=== PATIENT | female | born 1965 | race Caucasian/White ===

== ENCOUNTER 2016-07-10 09:59 | Day surgery (SDC) | payer MEDICAID ==
[~2016-07-10 09:59] MED LIST: Dexamethasone 4 MG/ML SDV ONE; Lactated Ringers 1,000 ML ONE; Lidocaine 1% 6 ML ONE; Lidocaine 1%/Sod Bicarbonate in NS 8.4% 1 ML Syringe PRN; Midazolam 1 MG/ML 2 ML SDV ONE; Ondansetron 4 MG/2 ML SDV ONE; Propofol 200 MG/20 ML SDV ONE; Rocuronium 50 MG/5 ML Vial ONE; Sodium Chloride 0.9% 10 ML Syringe FLUSH PRN; ceFAZolin 1 GM Vial ONE; fentaNYL 250 MCG/5 ML SDV ONE
[2016-07-10] MEDS: Lactated Ringers 1,000 ML IV SCH ×2 (10:25→16:22)
[2016-07-10] MEDS ORDERED: EPINEPHrine 1:1000 1 MG/ML SDV ONE (11:17)
[2016-07-10] MEDS ORDERED: Ropivacaine 0.5% 5 MG/ML 30 ML SDV ONE (11:18)
[2016-07-10] MEDS ORDERED: EPINEPHrine 1:1000 1 MG/ML 30 ML MDV ONE (11:43)
[2016-07-10] MEDS ORDERED: Bupivacaine 0.25% 30 ML SDV ONE (11:43)
[2016-07-10] MEDS ORDERED: Scopolamine 1.5 MG Transdermal Patch TOP ONE (11:44)
--- NOTE | 2016-07-10 11:44 | PCM.PREANE ---
Preanesthetic Assessment - Anesthesia/Transfusion/Family Hx Anesthesia History: Prior Anesthesia Without Reaction Family History of Anesthesia Reaction: No Transfusion History: No Prior Transfusion(s) - Review of Systems General: No Symptoms Pulmonary: No Symptoms Cardiovascular: No Symptoms Gastrointestinal: No symptoms Neurological: No Symptoms - Physical Assessment NPO Status Date: 07/09/16 NPO Status Time: 23:30 Pulse: 74 O2 Sat by Pulse Oximetry: 94 Respiratory Rate: 16 Blood Pressure: 143/69 Temperature: 36.4 C Vital Signs: Last Vital Signs Temp 97.5 C H 07/10/16 10:05 Pulse 74 07/10/16 10:05 Resp 16 07/10/16 10:05 BP 143/69 H 07/10/16 10:05 Pulse Ox 94 L 07/10/16 10:05 Height: 1.65 m Weight: 94.755 kg ASA Class: 2 Mental Status: Alert & Oriented x3 Airway Class: Mallampati = 1 Dentition: Reports: Normal Dentition Thyro-Mental Finger Breadths: 3 Mouth Opening Finger Breadths: 3 ROM/Head Extension: Full Lungs: Clear to auscultation, Normal respiratory effort Cardiovascular: Regular Rate, Regular Rhythm, No Murmurs - Lab Values: Laboratory Last Values POC Glucose 91 mg/dL (70-105) 07/10/16 10:30 - Allergies Allergies/Adverse Reactions: Allergies Allergy/AdvReac Type Severity Reaction Status Date / Time No Known Allergies Allergy Verified 07/10/16 10:44 - Blood Blood Available: No Product(s) Available: None - Anesthesia Plan Pre-Op Medication Ordered: None - Acknowledgements Anesthesia Type Planned: General Anesthesia, Regional Block (interscaline block for post-op pain control) Pt an Appropriate Candidate for the Planned Anesthesia: Yes Alternatives and Risks of Anesthesia Discussed w Pt/Guardian: Yes Pt/Guardian Understands and Agrees with Anesthesia Plan: Yes PreAnesthesia Questionnaire HEENT History: Reports: Allergic Rhinitis Cardiovascular History: Reports: High Cholesterol, Hypertension, Other (See Below) Other Cardiovascular History: chest wall pain Respiratory History: Reports: Bronchitis, Recurrent, SOB Gastrointestinal History: Reports: GERD, Other (See Below) Other Gastrointestinal History: abdominal pain, reflux, gastritis, nausea/ vomiting Genitourinary History: Reports: Renal Calculus, Other (See Below) Other Genitourinary History: dysuria, flank pain 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: Other (See Below) Other OB/BYN History: ovarian cyst Musculoskeletal History: Reports: Back Pain, Chronic, Fibromyalgia, Other (See Below) Other Musculoskeletal History: L arm paresthesia, cervical radiculopathy, L rotator cuff tear, back pain, bilateral carpal tunnel syndrome, degenerative arthritis of cervical spine, foreign body of toe, heel pain, 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, L shoulder pain, lumbar strain , myofascial pain, neck pain, open head wound, sacroilitis, synovial cyst to R knee Neurological History: Reports: Migraines, TIA Other Neuro History: L arm paresthesia, TIA, headaches, dizziness, memory changes Psychiatric History: Reports: Anxiety, Depression, Panic Attack, Other (See Below) Other Psychiatric History: fatigue, insomnia Endocrine/Metabolic History: Reports: Hypothyroidism, Obesity/BMI 30+, Vitamin D Deficiency Hematologic History: Reports: Anemia Other Hematologic History: vit D deficiency Immunologic History: Reports: None Oncologic (Cancer) History: Reports: None Dermatologic History: Reports: Other (See Below) Other Dermatologic History: rash, dermatitis, mucous cyst of toe, neck excision of soft tissue tumor - Past Surgical History Head Surgeries/Procedures: Reports: None GI Surgical History: Reports: Cholecystectomy, Hernia Repair/Other Female Surgical History: Reports: Hysterectomy, Tubal Ligation Musculoskeletal Surgical History: Reports: Carpal Tunnel, Other (See Below) Other Musculoskeletal Surgeries/Procedures:: L great toe surgery - SUBSTANCE USE Smoking Status *Q: Current Every Day Smoker Tobacco Use Within Last Twelve Months: Cigarettes Other Tobacco Use Within Last Twelve Months: 2 cigarettes a day Second Hand Smoke Exposure: Yes Days Per Week of Alcohol Use: 0 Number of Drinks Per Day: 0 Total Drinks Per Week: 0 Recreational Drug Use History: No Recreational Drug Type: Reports: Methamphetamine - HOME MEDS Home Medications: Home Meds Albuterol [Proventil HFA] 1 inhalation INH Q4HR PRN 07/24/15 [History] Levothyroxine 175 mcg PO SUMOTUWETHSA 07/24/15 [History] Levothyroxine Sodium [Synthroid] 200 mcg PO FR 07/24/15 [History] Triamcinolone Acetonide 1 applic TOP BID 07/24/15 [History] Aspirin/Acetaminophen/Caffeine [Migraine Relief Caplet] 2 tab PO DAILY PRN 07/09 [History] Metoprolol Succinate 50 mg PO DAILY 07/09/16 [History] Pantoprazole Sodium [Protonix] 40 mg PO DAILY 07/09/16 [History] Simvastatin 10 mg PO BEDTIME 07/09/16 [History] Zolpidem Tartrate 10 mg PO BEDTIME 07/09/16 [History] amLODIPine Besylate [Amlodipine Besylate] 5 mg PO DAILY 07/09/16 [History] metFORMIN HCl [Metformin HCl ER] 500 mg PO BEDTIME 07/09/16 [History] Acetaminophen/HYDROcodone [[place] 325-5 MG] 1 - 2 tab PO Q6H PRN #40 tablet 07/10 [Rx] Cyclobenzaprine [Flexeril] 10 mg PO Q8H PRN #40 tablet 07/10/16 [Rx] - CURRENT (IN HOUSE) MEDS Current Meds: Current Medications Lactated Ringer's (Ringers, Lactated) 1,000 mls @ 125 mls/hr IV ASDIRECTED MARCO A Stop: 07/10/16 23:00 Last Admin: 07/10/16 10:25 Dose: 125 mls/hr Lidocaine/Sodium Bicarbonate (Buffered Lidocaine 1% In Ns 8.4%) 0.25 ml .XX ONETIME PRN PRN Reason: Prior to IV Start Stop: 07/10/16 18:00 Last Admin: 07/10/16 10:24 Dose: 0.25 ml Pantoprazole Sodium (Protonix) 40 mg PO DAILY [facility] Stop: 07/11/16 23:59 Sodium Chloride (Saline Flush) 10 ml FLUSH ASDIRECTED PRN PRN Reason: Keep Vein Open Stop: 07/10/16 18:00 Discontinued Medications Cefazolin Sodium (Ancef) Confirm Administered Dose 2 gm .ROUTE .STK-MED ONE Stop: 07/10/16 08:04 Dexamethasone (Dexamethasone) Confirm Administered Dose 4 mg .ROUTE .STK-MED ONE Stop: 07/10/16 08:04 Epinephrine HCl (Adrenalin 1:1000) Confirm Administered Dose 1 mg .ROUTE .STK- MED ONE Stop: 07/10/16 11:18 Fentanyl (Sublimaze) Confirm Administered Dose 250 mcg .ROUTE .STK-MED ONE Stop: 07/10/16 08:04 Lidocaine HCl (Xylocaine-Mpf 1%) Confirm Administered Dose 6 mls @ as directed .ROUTE .STK-MED ONE Stop: 07/10/16 08:04 Lactated Ringer's (Ringers, Lactated) Confirm Administered Dose 1,000 mls @ as directed .ROUTE .STK-MED ONE Stop: 07/10/16 08:04 Midazolam HCl (Versed 1 Mg/Ml) Confirm Administered Dose 2 mg .ROUTE .STK-MED ONE Stop: 07/10/16 08:04 Ondansetron HCl (Zofran) Confirm Administered Dose 4 mg .ROUTE .ST-MED ONE Stop: 07/10/16 08:04 Propofol (Diprivan 20 Ml) Confirm Administered Dose 200 mg .ROUTE .STK-MED ONE Stop: 07/10/16 08:04 Rocuronium [place] (Zemuron) Confirm Administered Dose 50 mg .ROUTE .ST-MED ONE Stop: 07/10/16 08:04 Ropivacaine (Naropin 0.5%) Confirm Administered Dose 30 ml .ROUTE .[facility]-MED ONE Stop: 07/10/16 11:19
[2016-07-10] MEDS ORDERED: fentaNYL 250 MCG/5 ML SDV ONE (13:33)
[2016-07-10] MEDS ORDERED: HYDROmorphone 1 MG/ML Syringe ONE (13:53)
[2016-07-10] MEDS ORDERED: fentaNYL 250 MCG/5 ML SDV IVPUSH PRN (14:26)
--- NOTE | 2016-07-10 14:29 | PCM.POSTAN ---
POST ANESTHESIA ASSESSMENT - MENTAL STATUS Mental Status: somnolent - VITAL SIGNS Pulse Rate: 77 SaO2: 99 Resp Rate: 14 Blood Pressure: 146/88 Temperature: 98.1 C - RESPIRATORY Respiratory Status: respiratory rate WNL, airway patent, O2 saturation stable - CARDIOVASCULAR CV Status: pulse rate WNL, blood pressure stable - GASTROINTESTINAL GI Status: no symptoms - PAIN Pain Score: 0 - POST OP HYDRATION Hydration Status: adequate & stable - OBSERVATIONS Free Text/Narrative:: no anesthesia complications noted
--- NOTE | 2016-07-10 14:33 | PCM.SN ---
- Free Text/Narrative Note: Note: 07/10/2016 1430 136/78 70 99% 8 Surgeon and pt request post-op pain control for right shoulder surgery risk of block failure, facial numbness, site infection, and chronic pain discussed with pt and agreed to proceed. All standard monitors est. EKG, BP, Pulse Ox, 2L O2, and 2ml versed, 2ml fentanyl pre-op dx. right shoulder pain post-op dx right shoulder arthroscopy pt for interscalene block placement all standard monitors est. pt ID time out performed IV sedation 2ml versed, 2ml fentanyl, 2L NC O2, sterile prep and drape of right neck and shoulder U/S placed with visualization of brachial plexus from clavicle to cricoid local skin infiltration 22ga. Stimplex A insulated needle visualized at brachial plexus nerve stimulator at .9 Adelia Amps stop at .4 Adelia Amps with good bicep twitch with 1ml NaCl and lose of twitch neg aspirations every 5ml of 0.5% ropivacaine and 1:200,000 epi total of 30ml injected all done with U/S guidance needle withdrawn no complications noted pt tolerated procedure well block settling in start procedure at 1200 end procedure at 1221 123/60 75 97% 14
[2016-07-10] MEDS ORDERED: fentaNYL 100 MCG/2 ML SDV ONE (14:50)
--- NOTE | 2016-07-10 15:17 | PCM48HPAN ---
Post Anesthesia Note - EVALUATION WITHIN 48HRS OF ANESTHETIC Vital Signs in Normal Range: Yes Patient Participated in Evaluation: Yes Respiratory Function Stable: Yes Airway Patent: Yes Cardiovascular Function Stable: Yes Hydration Status Stable: Yes Pain Control Satisfactory: Yes Nausea and Vomiting Control Satisfactory: Yes (meds given) Mental Status Recovered: Yes - COMMENTS/OBSERVATIONS Free Text/Narrative:: no anesthesia complications noted
[2016-07-10] MEDS ORDERED: Ondansetron 4 MG/2 ML SDV ONE (15:24)
[2016-07-10] MEDS ORDERED: Ondansetron 4 MG/2 ML SDV IVPUSH ONE (15:33)
[2016-07-10] MEDS ORDERED: Metoclopramide 10 MG/2 ML SDV IVPUSH ONE (16:29)
[2016-07-10] MEDS ORDERED: Metoclopramide 10 MG/2 ML SDV IV PRN (16:32)
--- NOTE | 2016-07-10 16:38 | PCM.SN ---
- Free Text/Narrative Note: Anesthesia Note: Patient after surgery c/o epigastric pain that does not radiate. Patient also c/o some nausea. Repeat EKG done with report stating SR rate=74. (No changes noted from previous EKG) Reglan 10mg IV ordered, and P.O. protonix 40mg given.
[2016-07-10] MEDS ORDERED: Pantoprazole 40 MG Tab.CR PO SCH (16:52)
[2016-07-10 17:00] VITALS: BP 148/84
[2016-07-11] MEDS ORDERED: Pantoprazole 40 MG Tab.CR PO SCH (09:00)
--- NOTE | 2016-07-16 07:04 | PCM.OPNOTE ---
- General Post-Op/Procedure Note Date of Surgery/Procedure: 07/10/16 Operative Procedure(s): right shoulder video arthroscopy wtih rotator cuff repair, subacromial decompression and biceps tenotomy Pre Op Diagnosis: right shoulder rotator cuff tear with impingement Post-Op Diagnosis: same with biceps tendinopathy Anesthesia Technique: General ET tube, Regional block Primary Surgeon: Lee Carrasquillo Anesthesia Provider: Timothy Roach Audio Specialist: Hanna Mosqueda EBL in mLs: 5 Complications: None Condition: Good
--- NOTE | 2016-07-16 09:35 | OR ---
DATE OF OPERATION: 07/10/2016 SURGEON: Lee Carrasquillo MD OPERATION PERFORMED: 1. Right shoulder video arthroscopy with rotator cuff repair. 2. Subacromial decompression. 3. Biceps tenotomy. PREOPERATIVE DIAGNOSIS: Right shoulder rotator cuff tear with impingement. POSTOPERATIVE DIAGNOSIS: Right shoulder rotator cuff tear with impingement with biceps tendinopathy. ANESTHESIA: General endotracheal intubation with regional supraclavicular block. ANESTHESIA PROVIDER: Timothy Roach CRNA. MANAGEMENT AND BUDGET ANALYST: Hanna Mosqueda PA-C. ESTIMATED BLOOD LOSS: Less than 5 mL. COMPLICATIONS: None. CONDITION: Stable. DESCRIPTION OF PROCEDURE: The patient was identified in the preop holding area. Proper site was marked and identified by the surgeon. The patient was taken back to the operating theater, where after adequate anesthesia, the patient was placed in a lazy left lateral decubitus position. A wedge was placed posteriorly. All bony prominences were well padded. At this time, the right shoulder was sterilely prepped and draped in the usual sterile fashion. OR time-out was performed. The patient received 2 g IV Ancef and 12 pounds of traction was applied to the right upper extremity. Standard posterior incision was made. Scope trocar was introduced in the posterior portal. Spinal needle was used for creation of anterior portal from an outside in technique. There were no signs of chondromalacia. There was noted to be a significant full-thickness tear of the supraspinatus. The biceps tendon showed significant fraying and tendinopathy throughout the intra-articular portion, with no chance of tenodesis secondary to significant fraying. At this time, it was decided that a tenotomy would be performed and a tenotomy was performed along with portion of the labrum to the biceps tendon. At this time, attention was turned to subacromial space. Subacromial bursectomy was performed and a lateral portal was created. Next, good bony bleeding bed was obtained using resector in the area of the supraspinatus tear. One 4.75 mm SwiveLock Arthrex anchor was then placed medially. One limb of FiberWire, 1 limb of FiberTape was then passed from anterior to posterior. The 2 limbs of the FiberWire were then tied and then all 4 limbs were brought out laterally into another 4.75 mm SwiveLock anchor for lateral row repair. A subacromial decompression was then completed. The patient had a type 2/3 acromion and was brought back to a smooth border. At this time, the patient had a medium rotator cuff repair, tolerated it well, and had a sterile dressing applied, and was sent to PACU in stable condition. REBECA /[id number]
== END 2016-07-10 17:35 | disposition home or self-care (01) ==
LOC: JD.SDS 09:59
PROVIDERS: ATTEND Orthopaedic Surgery
DX: M75.101 Unspecified rotator cuff tear or rupture of right shoulder, not specified as traumatic (principal); M75.41 Impingement syndrome of right shoulder; E66.3 Overweight; Z68.36 Body mass index [BMI] 36.0-36.9, adult; E55.9 Vitamin D deficiency, unspecified; Z91.09 Other allergy status, other than to drugs and biological substances; Z79.899 Other long term (current) drug therapy; Z98.890 Other specified postprocedural states; Z90.710 Acquired absence of both cervix and uterus; Z98.51 Tubal ligation status; F17.210 Nicotine dependence, cigarettes, uncomplicated; Z72.0 Tobacco use
CPT/HCPCS: 29826; 29827; 82962; 93005; A9270; J0171; J0690; J1100; J1170; J2250; J2405; J2765; J2795; J3010; J7120; 01630; 64415; C1713; J2704; J3490

== ENCOUNTER 2016-11-06 07:14 | Day surgery (SDC) | payer MEDICAID ==
[~2016-11-06 07:14] MED LIST changes: -Dexamethasone 4 MG/ML SDV ONE; +EPINEPHrine 1 MG/ML SDV ONE; +Lactated Ringers 1,000 ML IV SCH; -Lactated Ringers 1,000 ML ONE; +Lidocaine 1% 4 ML ONE; -Lidocaine 1% 6 ML ONE; +Lidocaine 1%/Sod Bicarbonate in NS 8.4% 1 ML Syringe IV PRN; -Lidocaine 1%/Sod Bicarbonate in NS 8.4% 1 ML Syringe PRN; +Ropivacaine 0.5% 5 MG/ML 30 ML SDV ONE
[2016-11-06] MEDS ORDERED: Scopolamine 1.5 MG Transdermal Patch TRDERM ONE (07:35)
--- NOTE | 2016-11-06 07:39 | PCM.PREANE ---
Preanesthetic Assessment - Procedure Proposed Procedure: Left shoulder video arthroscopy, rotator cufff repair, subacromial decompression , and any indicated procedures. - Anesthesia/Transfusion/Family Hx Anesthesia History: Prior Anesthesia Without Reaction Type of Anesthesia Reaction: Excessive Nausea/Vomiting Family History of Anesthesia Reaction: No Transfusion History: No Prior Transfusion(s) Intubation History: Unknown - Review of Systems General: No Symptoms Pulmonary: No Symptoms Cardiovascular: No Symptoms Gastrointestinal: No Symptoms Neurological: Headache Other: Reports: Diabetes (Prediabetes), Thyroid Problems - Physical Assessment NPO Status Date: 11/05/16 NPO Status Time: 00:00 Pulse: 81 O2 Sat by Pulse Oximetry: 94 Respiratory Rate: 16 Blood Pressure: 131/86 Temperature: 36.8 C Height: 1.65 m Weight: 94.755 kg ASA Class: 3 Mental Status: Alert & Oriented x3 Airway Class: Mallampati = 2 Dentition: Reports: Normal Dentition Thyro-Mental Finger Breadths: 3 Mouth Opening Finger Breadths: 3 ROM/Head Extension: Full Lungs: Clear to Auscultation, Normal Respiratory Effort Cardiovascular: Regular Rate, Regular Rhythm - Lab Values: Laboratory Last Values MRSA (PCR) Negative 10/28/16 14:00 - Allergies Allergies/Adverse Reactions: Allergies Allergy/AdvReac Type Severity Reaction Status Date / Time No Known Allergies Allergy Verified 11/05/16 15:38 - Anesthesia Plan Pre-Op Medication Ordered: Beta José Manuel Beta José Manuel: Metoprolol Med Last Dose Date: 11/06/16 Med Last Dose Time: 06:00 - Acknowledgements Anesthesia Type Planned: General Anesthesia, Regional Block Pt an Appropriate Candidate for the Planned Anesthesia: Yes Alternatives and Risks of Anesthesia Discussed w Pt/Guardian: Yes Pt/Guardian Understands and Agrees with Anesthesia Plan: Yes PreAnesthesia Questionnaire HEENT History: Reports: Allergic Rhinitis Cardiovascular History: Reports: High Cholesterol, Hypertension, Other (See Below) Other Cardiovascular History: chest wall pain and pressure Respiratory History: Reports: SOB, Other (See Below) Other Respiratory History: dypsnea, bronchitis Gastrointestinal History: Reports: Gastritis, GERD Other Gastrointestinal History: abdominal pain, reflux, gastritis, nausea/ vomiting, rectal bleed Genitourinary History: Reports: Other (See Below) Other Genitourinary History: dysuria, backetal vaginosis, flank pain, renal calculus 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 (See Below) Other OB/BYN History: ovarian cyst, baceterial vaginosis Musculoskeletal History: Reports: Back Pain, Chronic Other Musculoskeletal History: L arm paresthesia, cervical radiculopathy, L rotator cuff tear, back pain, bilateral carpal tunnel syndrome, degenerative arthritis of cervical spine, foreign body of toe, heel pain, 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, L shoulder pain, lumbar strain , myofascial pain, neck pain, open head wound, sacroilitis, synovial cyst to R knee Neurological History: Reports: Migraines, TIA Other Neuro History: cervical radiuclar pain, headaches, dizziness, migraines, TIA, memory changes Psychiatric History: Reports: Anxiety, Depression, Panic Attack Other Psychiatric History: fatigue, insomnia Endocrine/Metabolic History: Reports: Hypothyroidism Hematologic History: Reports: Anemia Other Hematologic History: vit D deficiency Immunologic History: Reports: None Oncologic (Cancer) History: Reports: None Dermatologic History: Reports: Other (See Below) Other Dermatologic History: rash, dermatitis, mucous cyst of toe, neck excision of soft tissue tumor - Past Surgical History Head Surgeries/Procedures: Reports: None Respiratory Surgical History: Reports: None GI Surgical History: Reports: Cholecystectomy, Colonoscopy, Hernia Repair/Other Female Surgical History: Reports: Hysterectomy, Tubal Ligation Neurological Surgical History: Reports: None Musculoskeletal Surgical History: Reports: Carpal Tunnel Other Musculoskeletal Surgeries/Procedures:: L great toe surgery, R carpal tunnel surgery Dermatological Surgical History: Reports: None - SUBSTANCE USE Smoking Status *Q: Former Smoker (Quit 6 months ago.) Tobacco Use Within Last Twelve Months: Cigarettes Other Tobacco Use Within Last Twelve Months: 2 cigarettes a day Second Hand Smoke Exposure: Yes Days Per Week of Alcohol Use: 0 Number of Drinks Per Day: 0 Total Drinks Per Week: 0 Recreational Drug Use History: No Recreational Drug Type: Reports: Methamphetamine - HOME MEDS Home Medications: Home Meds Levothyroxine 175 mcg PO SUMOTUWETHSA 07/24/15 [History] Levothyroxine Sodium [Synthroid] 200 mcg PO FR 07/24/15 [History] Metoprolol Succinate 50 mg PO DAILY 07/09/16 [History] Pantoprazole Sodium [Protonix] 40 mg PO DAILY 07/09/16 [History] Simvastatin 10 mg PO BEDTIME 07/09/16 [History] Zolpidem Tartrate 10 mg PO BEDTIME 07/09/16 [History] metFORMIN HCl [Metformin HCl ER] 500 mg PO BEDTIME 07/09/16 [History] Albuterol Sulfate [Proair Hfa] 1 puff INH Q4H PRN 11/05/16 [History] Chromium Picolinate 200 mcg PO BID 11/05/16 [History] Escitalopram [Lexapro] 20 mg PO DAILY 11/05/16 [History] Ondansetron [Zofran] 4 mg PO Q8H 11/05/16 [History] amLODIPine [Norvasc] 10 mg PO DAILY 11/05/16 [History] - CURRENT (IN HOUSE) MEDS Current Meds: Current Medications Lactated Ringer's (Ringers, Lactated) 1,000 mls @ 125 mls/hr IV ASDIRECTED MARCO A Lidocaine/Sodium Bicarbonate (Buffered Lidocaine 1% In Ns 8.4%) 0.25 ml IV ONETIME PRN PRN Reason: Prior to IV Start Sodium Chloride (Saline Flush) 10 ml FLUSH ASDIRECTED PRN PRN Reason: Keep Vein Open Discontinued Medications Cefazolin Sodium (Ancef) Confirm Administered Dose 2 gm .ROUTE .STK-MED ONE Stop: 11/06/16 07:05 Epinephrine HCl (Adrenalin 1:1000) Confirm Administered Dose 1 mg .ROUTE .STK- MED ONE Stop: 11/06/16 06:56 Fentanyl (Sublimaze) Confirm Administered Dose 250 mcg .ROUTE .STK-MED ONE Stop: 11/06/16 07:06 Lidocaine HCl (Xylocaine-Mpf 1%) Confirm Administered Dose 4 mls @ as directed .ROUTE .STK-MED ONE Stop: 11/06/16 07:05 Midazolam HCl (Versed 1 Mg/Ml) Confirm Administered Dose 2 mg .ROUTE .STK-MED ONE Stop: 11/06/16 07:06 Ondansetron HCl (Zofran) Confirm Administered Dose 4 mg .ROUTE .STK-MED ONE Stop: 11/06/16 07:05 Propofol (Diprivan 20 Ml) Confirm Administered Dose 200 mg .ROUTE .STK-MED ONE Stop: 11/06/16 07:06 Rocuronium [place] (Zemuron) Confirm Administered Dose 50 mg .ROUTE .STK-MED ONE Stop: 11/06/16 07:05 Ropivacaine (Naropin 0.5%) Confirm Administered Dose 30 ml .ROUTE .[facility] ONE Stop: 11/06/16 06:57
[2016-11-06] MEDS ORDERED: EPINEPHrine 1 MG/ML 30 ML MDV ONE (07:50)
[2016-11-06] MEDS ORDERED: Bupivacaine 0.25% 30 ML SDV ONE (08:04)
[2016-11-06] MEDS ORDERED: Dexamethasone 4 MG/ML SDV ONE ×2 (08:54)
[2016-11-06] MEDS ORDERED: Lactated Ringers 1,000 ML ONE ×2 (09:10→10:16)
[2016-11-06] MEDS: Bupivacaine 0.25% 30 ML SDV ONE ×2 (09:28→10:01)
[2016-11-06] MEDS ORDERED: Glycopyrrolate 0.2 MG/ML SDV ONE ×4 (09:29)
[2016-11-06] MEDS ORDERED: Neostigmine Methylsulfate 10 MG/10 ML MDV ONE (09:29)
[2016-11-06] MEDS ORDERED: Haloperidol Lactate 5 MG/ML SDV IVPUSH ONE ×2 (09:32→12:00)
[2016-11-06] MEDS ORDERED: HYDROmorphone 0.5 MG/0.5 ML Syringe IVPUSH PRN (09:32)
[2016-11-06] MEDS ORDERED: Ondansetron 4 MG/2 ML SDV IVPUSH PRN (09:32)
[2016-11-06] MEDS ORDERED: fentaNYL 100 MCG/2 ML SDV IVPUSH PRN (10:00)
--- NOTE | 2016-11-06 10:32 | PCM.POSTAN ---
POST ANESTHESIA ASSESSMENT - MENTAL STATUS Mental Status: Alert, Oriented - VITAL SIGNS Pulse Rate: 83 SaO2: 93 Resp Rate: 16 Blood Pressure: 124/79 Temperature: 98 C - RESPIRATORY Respiratory Status: Respiratory Rate WNL, Airway Patent, O2 Saturation Stable - CARDIOVASCULAR CV Status: Pulse Rate WNL, Blood Pressure Stable - GASTROINTESTINAL GI Status: No Symptoms - PAIN Pain Score: 0 - POST OP HYDRATION Hydration Status: Adequate & Stable
[2016-11-06] MEDS ORDERED: Acetaminophen/HYDROcodone 325-5 MG Tab PO SCH (11:30)
--- NOTE | 2016-11-06 13:06 | PCM.SN ---
- Free Text/Narrative Note: 11/06/16 [id number] Time out performed. Requested to place left interscale block with ultrasound guidance and nerve stimulator for post op pain control per Dr. Carrasquillo and patient. Preop diagnosis left shoulder pain. Procedure is left shoulder arthrosocpy with rotator cuff repair and subacromial decompression Informed consent obtained. Monitors and O2 placed at 2 l per n/c. Versed 2 mg and Fentanyl 150 mcg titrated IV . Patient awake and talking during procedure. Left neck and clavicle area prepped with chlorprep. Sterile gloves, hat and mask worn. US probe with sterile sleeve placed midclavicular with ID of brachial plexus and subclavian artery. Brachial plexus followed cephalad to level of cricoid. Lidocaine 1% local anesthetic injected prior to block placement. 22 g 2 inch stimplex needle advanced with US guidance to brachial plexus. Positive forearm response at .3mA with nerve stimulator. Ceased with saline injection.Ropivacaine 0.5% with epi 1:200,000 injected in increments of 5 ml with negative aspiration before each injection to a total of 30 ml. Good spread of local anesthetic seen on US. Patient tolerated procedure well. Vitals stable with no complaints.
--- NOTE | 2016-11-06 13:51 | PCM48HPAN ---
Post Anesthesia Note - EVALUATION WITHIN 48HRS OF ANESTHETIC Vital Signs in Normal Range: Yes Patient Participated in Evaluation: Yes Respiratory Function Stable: Yes Airway Patent: Yes Cardiovascular Function Stable: Yes Hydration Status Stable: Yes Pain Control Satisfactory: Yes Nausea and Vomiting Control Satisfactory: Yes (denies nausea. ) Mental Status Recovered: Yes
[2016-11-06 13:55] VITALS: BP 119/76
--- NOTE | 2016-11-10 22:14 | PCM.OPNOTE ---
- General Post-Op/Procedure Note Date of Surgery/Procedure: 11/06/16 Operative Procedure(s): left shoulder video arthroscopy with large rotator cuff repair, subacromial decompression and limited debridement Pre Op Diagnosis: left shoulder rotator cuff tear with impingement Post-Op Diagnosis: Same Anesthesia Technique: General ET Tube, Regional Block Primary Surgeon: Lee Carrasquillo Anesthesia Provider: Kaylie Llanes Imaging Engineer: Hanna Mosqueda EBL in mLs: 5 Complications: None Condition: Good
--- NOTE | 2016-11-10 23:30 | OR ---
DATE OF OPERATION: 11/06/2016 SURGEON: Lee Carrasquillo MD OPERATION PERFORMED: Left shoulder video arthroscopy with large rotator cuff repair, subacromial decompression, and limited debridement. PREOPERATIVE DIAGNOSIS: Left shoulder rotator cuff tear with impingement. POSTOPERATIVE DIAGNOSIS: Left shoulder rotator cuff tear with impingement. ANESTHESIA: General endotracheal intubation with interscalene block. ANESTHESIA PROVIDER: Kaylie Llanes CRNA. PROVIDER RELATIONS REPRESENTATIVE: Hanna Mosqueda PA-C. ESTIMATED BLOOD LOSS: 5 mL. COMPLICATIONS: None. CONDITION: Stable. DESCRIPTION OF PROCEDURE: The patient was identified in the preop holding area. Proper site was marked and identified by the surgeon. The patient was taken back to the operating theater where after adequate anesthesia, the patient was placed in a lazy right lateral decubitus position. A wedge was placed posteriorly. The patient was secured to the table. All bony prominences were well padded. The left shoulder was then sterilely prepped and draped in the usual sterile fashion. OR time-out was performed. The patient received 2 g IV Ancef. A 12 pounds of traction was applied to the left upper extremity. At this time, standard posterior incision was made. The scope trocar was then introduced through the posterior portal with use of a spinal needle. In an outside in technique, an anterior portal was then created. Cursory examination showed a large tear of both the supra and just small area of the infraspinatus with full-thickness tears. The patient was noted to have previous biceps tendon rupture with no biceps tendon noted in the glenohumeral joint. There was no significant chondromalacia noted. There were no loose foreign bodies noted. At this time, attention was turned to the subacromial space. At this time, a limited debridement was done of the subacromial space. To better elucidate the tissue for repair of the rotator cuff, a partial synovectomy was also done. At this time, the patient was noted to have type 2/3 acromion and the anterior portion was downward sloped. At this time, a 4-0 full-radius jagdeep was used to resect the anterior portion of the acromion back to a type 1 acromion performing an acromioplasty at this time. Debridement was also done of the synovium in the subacromial space. At this time, good bony bleeding bed at the old footprint of the supraspinatus was obtained. A punch was used for 4.75 mm Arthrex SwiveLock anchor medially and double loaded with FiberTape. Arthrex 4.75 mm SwiveLock anchor was placed. Starting anteriorly one limb of FiberTape was passed and then two limbs of FiberWire and then another two limbs of FiberWire and then posteriorly an other limb of FiberTape. The first anterior 2 limbs of the FiberWire were then tied and then the posterior 2 limbs of the FiberWire were tied. One suture was cut from each of these. Next, the punch was used out laterally for another 4.75 mm Arthrex SwiveLock anchor for a double-row repair. Attention was applied to all sutures. There was found to be adequate christian of the footprint with watertight repair. After the SwiveLock anchor was placed out laterally, all sutures were cut. There was noted be no dog ears at this time. Excess saline was drained from the shoulder. A 3-0 nylon simple suture was used for closure of the skin. The patient was placed in sterile soft dressing and a pillow sling and sent to PACU in stable condition. MMJACK /[id number]
== END 2016-11-06 14:41 | disposition home or self-care (01) ==
LOC: JD.SDS 07:14
PROVIDERS: ATTEND Orthopaedic Surgery
DX: M75.122 Complete rotator cuff tear or rupture of left shoulder, not specified as traumatic (principal); M75.42 Impingement syndrome of left shoulder; M79.7 Fibromyalgia; I10 Essential (primary) hypertension; E78.00 Pure hypercholesterolemia, unspecified; E03.9 Hypothyroidism, unspecified; E66.01 Morbid (severe) obesity due to excess calories; F32.9 Major depressive disorder, single episode, unspecified; F41.9 Anxiety disorder, unspecified; R73.03 Prediabetes; Z86.73 Personal history of transient ischemic attack (TIA), and cerebral infarction without residual deficits; Z87.442 Personal history of urinary calculi; Z68.39 Body mass index [BMI] 39.0-39.9, adult; Z79.84 Long term (current) use of oral hypoglycemic drugs; Z79.899 Other long term (current) drug therapy; Z98.890 Other specified postprocedural states; Z90.710 Acquired absence of both cervix and uterus; Z98.51 Tubal ligation status; Z90.49 Acquired absence of other specified parts of digestive tract; Z87.891 Personal history of nicotine dependence
CPT/HCPCS: 29826; 29827; 82962; 87641; A9270; C1713; J0171; J0690; J1100; J1170; J1630; J2250; J2405; J2710; J2795; J3010; J3490; J7120; 01610; 64415; J2704

== ENCOUNTER 2017-08-08 13:03 | Emergency (ER) | payer MEDICAID ==
[2017-08-08 13:30] VITALS: BP 129/88
--- NOTE | 2017-08-08 13:45 | EDM.PDOC ---
ED HPI GENERAL MEDICAL PROBLEM - General Chief Complaint: Headache Stated Complaint: HEADACHE-SENT BY WALK IN CLINIC Time Seen by Provider: 08/08/17 13:45 Source of Information: Reports: Patient History Limitations: Reports: No Limitations - History of Present Illness INITIAL COMMENTS - FREE TEXT/NARRATIVE: Leatha is a pleasant 51yo female sent over from [facility], ambulatory, accompanied by significant other for c/o headache. JACOB started early this week thursday or thursday. She woke up one morning, Thursday or Thursday and noted numbness and tingling to the left side of her face/cheek. She denies slurred speech, confusion, vision change or trouble with her balance that day. States "it got really bad last night and I was crying". She has hx of TIA around 1 year ago and again 5 years ago which was accompanied by cheek numbness and slurred speech. After her last TIA one year ago she quit smoking. She was in [place] during the last bout with TIA's. She does have neck problems. She does not feel that her current headache is related to her chronic back/neck problems. She has been nauseous intermittently this week. No vomiting. JACOB is worse with any activity and light, sounds, smells. She is taking excederin, tylenol, ibuprofen at home with minimal no relief. She took a "sinus medication too but it didn't work". She has hx of migraine headaches "for as long as I can remember", states I have headaches every week. She is not taking any prophylactic meds at this time but has in the past, topamax, also used imitrex for a time- she feels both helped. PCP is with [facility]. 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: tylenol,ice pac;icey hot; OTC headache med Headache Pain Score (Numeric/FACES): 7 - Related Data Allergies Allergy/AdvReac Type Severity Reaction Status Date / Time No Known Allergies Allergy Verified 11/05/16 15:38 Home Meds: Home Meds Levothyroxine 175 mcg PO SUMOTUWETHSA 07/24/15 [History] Levothyroxine Sodium [Synthroid] 200 mcg PO FR 07/24/15 [History] Metoprolol Succinate 50 mg PO DAILY 07/09/16 [History] Pantoprazole Sodium [Protonix] 40 mg PO DAILY 07/09/16 [History] Simvastatin 10 mg PO BEDTIME 07/09/16 [History] Zolpidem Tartrate 10 mg PO BEDTIME 07/09/16 [History] metFORMIN HCl [Metformin HCl ER] 500 mg PO BEDTIME 07/09/16 [History] Albuterol Sulfate [Proair Hfa] 1 puff INH Q4H PRN 11/05/16 [History] amLODIPine [Norvasc] 10 mg PO DAILY 11/05/16 [History] Past Medical History HEENT History: Reports: Allergic Rhinitis Cardiovascular History: Reports: High Cholesterol, Hypertension, Other (See Below) Other Cardiovascular History: chest wall pain Respiratory History: Reports: SOB Other Respiratory History: dypsnea, bronchitis Gastrointestinal History: Reports: GERD Other Gastrointestinal History: abdominal pain, reflux, gastritis, nausea/ vomiting Genitourinary History: Reports: Other (See Below) Other Genitourinary History: dysuria 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 Below) Other OB/BYN History: ovarian cyst Musculoskeletal History: Reports: Back Pain, Chronic Other Musculoskeletal History: L arm paresthesia, cervical radiculopathy, L rotator cuff tear, back pain, bilateral carpal tunnel syndrome, degenerative arthritis of cervical spine, foreign body of toe, heel pain, 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, L shoulder pain, lumbar strain , myofascial pain, neck pain, open head wound, sacroilitis, synovial cyst to R knee Neurological History: Reports: Migraines, TIA Other Neuro History: Current Headache with Rx of 30mg Toradol Psychiatric History: Reports: Anxiety, Depression, Panic Attack Other Psychiatric History: fatigue, insomnia Endocrine/Metabolic History: Reports: Hypothyroidism Hematologic History: Reports: Anemia Other Hematologic History: vit D deficiency Immunologic History: Reports: None Oncologic (Cancer) History: Reports: None Dermatologic History: Reports: Other (See Below) Other Dermatologic History: rash, dermatitis, mucous cyst of toe, neck excision of soft tissue tumor - Past Surgical History Head Surgeries/Procedures: Reports: None GI Surgical History: Reports: Cholecystectomy Other Musculoskeletal Surgeries/Procedures:: L great toe surgery Dermatological Surgical History: Reports: None Social & Family History - Tobacco Use Smoking Status *Q: Former Smoker Used Tobacco, but Quit: Yes Month/Year Tobacco Last Used: 1 yr - Caffeine Use Caffeine Use: Reports: Coffee, Soda, Tea - Recreational Drug Use Recreational Drug Use: No ED ROS GENERAL - Review of Systems Review Of Systems: See Below Constitutional: Reports: No Symptoms HEENT: Reports: Dental Pain (does have a "bad tooth"). Denies: Eye Pain, Hearing Loss, Sinus Problem, Vertigo, Vision Change Respiratory: Reports: No Symptoms Cardiovascular: Reports: No Symptoms GI/Abdominal: Reports: No Symptoms Musculoskeletal: Reports: Neck Pain (chronic), Back Pain (chronic) Skin: Reports: No Symptoms Neurological: Reports: Dizziness, Headache. Denies: Confusion, Paresthesia, Syncope, Trouble Speaking, Weakness, Change in Speech, Gait Disturbance Psychiatric: Reports: No Symptoms - Physical Exam Exam: See Below Exam Limited By: No Limitations General Appearance: Alert, WD/WN, No Apparent Distress Eye Exam: Bilateral Eye: EOMI, PERRL Ears: Normal External Exam, Normal Canal, Hearing Grossly Normal Nose: Normal Inspection Throat/Mouth: Normal Inspection, Normal Lips, Normal Teeth, Normal Gums, Normal Voice, No Airway Compromise Head Exam: Atraumatic, Normocephalic Neck: Normal Inspection Respiratory/Chest: No Respiratory Distress, Lungs Clear, Normal Breath Sounds Cardiovascular: Normal Peripheral Pulses, Regular Rate, Rhythm, No Edema, No Murmur GI/Abdominal: Normal Bowel Sounds, Soft, Non-Tender, Other (round/obese) (Female) Exam: Deferred Rectal (Female) Exam: Deferred Neuro Exam (Abbreviated): Alert, Oriented, CN II-XII Intact, Normal Cognition, Normal Reflexes, No Motor/Sensory Deficits DTR: 2+: Patella (R), Patella (L) Back Exam: Normal Inspection Extremities: Normal Inspection, Non-Tender, No Pedal Edema, Normal Capillary Refill Psychiatric: Normal Affect, Normal Mood Skin Exam: Warm, Dry, Intact Course - Vital Signs Last Recorded V/S: Last Vital Signs Temp 98.2 F 08/08/17 13:30 Pulse 82 08/08/17 13:30 Resp 20 08/08/17 13:30 BP 129/88 08/08/17 13:30 Pulse Ox 97 08/08/17 13:30 - Orders/Labs/Meds Orders: Active Orders 24 hr Category Date Time Status Head wo Cont [CT] Stat Exams 08/08/17 14:02 Taken Meds: Medications Discontinued Medications Generic Name Dose Route Start Last Admin Trade Name Yared PRN Reason Stop Dose Admin Diphenhydramine HCl 50 mg 08/08/17 14:03 08/08/17 14:20 Benadryl IVPUSH 08/08/17 14:04 50 mg ONETIME ONE Administration Ketorolac Tromethamine 30 mg 08/08/17 14:03 08/08/17 14:20 Toradol IVPUSH 08/08/17 14:04 30 mg ONETIME ONE Administration Ondansetron HCl 4 mg 08/08/17 14:03 08/08/17 14:21 Zofran IVPUSH 08/08/17 14:04 4 mg ONETIME ONE Administration - Radiology Interpretation CT Results Date: 08/08/17 ([facility] report of head CT without contrast is with no evidence of acute intracranial finding. ) - Re-Assessments/Exams Free Text/Narrative Re-Assessment/Exam: 08/08/17 15:54 Headache is improved to resolved. Reviewed normal head CT results with patient. Will DC home- see DC instructions. Departure - Departure Time of Disposition: 15:54 Disposition: Home, Self-Care 01 Condition: Good Clinical Impression: Migraine - Discharge Information Instructions: Migraine Headache, [id number] Referrals: PCP,None [Ordering Only Provider] - Forms: ED Department Discharge Additional Instructions: Push fluids and continue with over the counter pain medications until follow up with primary care. Recommend follow up with PCP in [facility] early next week to discuss daily prophylactic headache medication to keep migraines at bay. Topamax has worked well in the past, this may be a good starting point again. Head CT today was normal. Could consider MRI of brain to rule out recurrent TIA' s as you have had these in the past. Return to ER if headache returns or worsens, any numbness/tingling, weakness, slurred speech, confusion or any other neurologic symptoms. - My Orders Last 24 Hours: My Active Orders 08/08/17 14:02 Head wo Cont [CT] Stat - Assessment/Plan Last 24 Hours: My Active Orders 08/08/17 14:02 Head wo Cont [CT] Stat
[2017-08-08] MEDS ORDERED: diphenhydrAMINE 50 MG/ML SDV IVPUSH ONE (14:03)
[2017-08-08] MEDS ORDERED: Ondansetron 4 MG/2 ML SDV IVPUSH ONE (14:03)
[2017-08-08] MEDS ORDERED: Ketorolac 30 MG/ML SDV IVPUSH ONE (14:03)
--- NOTE | 2017-08-10 07:48 | CT ---
Head CT Technique: Multiple axial sections through the brain were obtained. Intravenous contrast was not utilized. Comparison: Prior head CT exam of 06/28/13. Findings: Ventricles along with basal cisterns and sulci over the convexities are within normal limits for the patient's age. No abnormal parenchymal densities are seen. No evidence of intracranial hemorrhage. No midline shift or mass effect is seen. Cerebellar tonsils appear to be slightly low in position which on previous MRI cervical spine study is a normal variant. Visualized sinuses are clear. No acute calvarial abnormality is identified. Impression: 1. Nothing acute is seen on noncontrast head CT exam. Diagnostic code #2 I agree with preliminary report issued by [facility] ([facility] preliminary report dictated on 08/08/17, 3:45 PM Central Time)
== END 2017-08-08 16:00 | disposition home or self-care (01) ==
LOC: JD.ED 13:03
DX: G43.909 Migraine, unspecified, not intractable, without status migrainosus (principal); I10 Essential (primary) hypertension; E78.00 Pure hypercholesterolemia, unspecified; K21.9 Gastro-esophageal reflux disease without esophagitis; E03.9 Hypothyroidism, unspecified; D64.9 Anemia, unspecified; Z79.899 Other long term (current) drug therapy; Z87.891 Personal history of nicotine dependence; Z86.73 Personal history of transient ischemic attack (TIA), and cerebral infarction without residual deficits
CPT/HCPCS: 70450; 96374; 96375; 99284; J1200; J1885; J2405

== ENCOUNTER 2018-03-20 12:57 | Emergency (ER) | payer MEDICAID ==
[2018-03-20 13:12] VITALS: BP 149/101
[2018-03-20] MEDS ORDERED: Sodium Chloride 0.9% 1,000 ML IV SCH (13:30)
[2018-03-20] MEDS ORDERED: Ketorolac 30 MG/ML SDV IVPUSH SCH (13:30)
[2018-03-20] MEDS ORDERED: Metoclopramide 10 MG/2 ML SDV IVPUSH ONE (13:30)
[2018-03-20] MEDS ORDERED: diphenhydrAMINE 50 MG/ML SDV IVPUSH ONE (13:30)
[2018-03-20] MEDS ORDERED: Sodium Chloride 0.9% 10 ML Syringe FLUSH PRN (13:30)
--- NOTE | 2018-03-20 13:36 | EDM.PDOC ---
ED HPI GENERAL MEDICAL PROBLEM - General Chief Complaint: Headache Stated Complaint: HEADACHE Time Seen by Provider: 03/20/18 13:11 Source of Information: Reports: Patient, RN Notes Reviewed - History of Present Illness INITIAL COMMENTS - FREE TEXT/NARRATIVE: 52-year-old female comes in with severe headache. She does have history of migraine headaches. She states she had a cervical injection about 9 or 10 days ago in [place] and then had a lumbar injection just a day or 2 ago. He states her headaches typically did get better after the injections but for her this past week it has been getting worse. She also does have a lot of upper back discomfort, neck discomfort as well as generalized headache. No fever chills. Been no vomiting. No focal weakness or speech difficulty. She's been trying a variety of medications at home without any meaningful relief. She also does have history of fibromyalgia. Lower Head Pain Score (Numeric/FACES): 6 - Related Data Allergies Allergy/AdvReac Type Severity Reaction Status Date / Time No Known Allergies Allergy Verified 03/20/18 13:09 Home Meds: Home Meds Levothyroxine 175 mcg PO SUMOTUWETHSA 07/24/15 [History] Levothyroxine Sodium [Synthroid] 200 mcg PO FR 07/24/15 [History] Metoprolol Succinate 50 mg PO DAILY 07/09/16 [History] Pantoprazole Sodium [Protonix] 40 mg PO DAILY 07/09/16 [History] Simvastatin 10 mg PO BEDTIME 07/09/16 [History] Zolpidem Tartrate 10 mg PO BEDTIME 07/09/16 [History] metFORMIN HCl [Metformin HCl ER] 500 mg PO BEDTIME 07/09/16 [History] Albuterol Sulfate [Proair Hfa] 1 puff INH Q4H PRN 11/05/16 [History] amLODIPine [Norvasc] 10 mg PO DAILY 11/05/16 [History] Topiramate [Topamax] 50 mg PO BEDTIME 09/10/17 [History] Past Medical History HEENT History: Reports: Allergic Rhinitis Cardiovascular History: Reports: High Cholesterol, Hypertension, Other (See Below) Other Cardiovascular History: chest wall pain Respiratory History: Reports: Bronchitis, Recurrent, SOB Other Respiratory History: dypsnea Gastrointestinal History: Reports: GERD Other Gastrointestinal History: abdominal pain, reflux, gastritis, nausea/ vomiting Genitourinary History: Reports: Other (See Below) Other Genitourinary History: dysuria 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: , Other (See Below) Other RETANNER History: ovarian cyst Musculoskeletal History: Reports: Back Pain, Chronic Other Musculoskeletal History: L arm paresthesia, cervical radiculopathy, L rotator cuff tear, back pain, bilateral carpal tunnel syndrome, degenerative arthritis of cervical spine, foreign body of toe, heel pain, 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, L shoulder pain, lumbar strain , myofascial pain, neck pain, open head wound, sacroilitis, synovial cyst to R knee Neurological History: Reports: Migraines, TIA Other Neuro History: Current Headache with Rx of 30mg Toradol Psychiatric History: Reports: Anxiety, Depression, Panic Attack Other Psychiatric History: fatigue, insomnia Endocrine/Metabolic History: Reports: Hypothyroidism Hematologic History: Reports: Anemia Other Hematologic History: vit D deficiency Immunologic History: Reports: None Oncologic (Cancer) History: Reports: None Dermatologic History: Reports: Other (See Below) Other Dermatologic History: rash, dermatitis, mucous cyst of toe, neck excision of soft tissue tumor - Past Surgical History Head Surgeries/Procedures: Reports: None GI Surgical History: Reports: Cholecystectomy Other Musculoskeletal Surgeries/Procedures:: L great toe surgery Dermatological Surgical History: Reports: None Social & Family History - Tobacco Use Smoking Status *Q: Former Smoker Used Tobacco, but Quit: Yes Month/Year Tobacco Last Used: 3 years ago - Caffeine Use Caffeine Use: Reports: None - Recreational Drug Use Recreational Drug Use: No ED ROS GENERAL - Review of Systems Review Of Systems: See Below Constitutional: Denies: Fever, Chills, Diaphoresis HEENT: Denies: Rhinitis, Sinus Problem, Throat Pain, Vertigo Respiratory: Denies: Shortness of Breath, Cough Cardiovascular: Denies: Chest Pain GI/Abdominal: Reports: Nausea. Denies: Abdominal Pain, Vomiting (Occasional mild) Musculoskeletal: Reports: Neck Pain, Back Pain (Bilateral mid and upper back discomfort). Denies: Leg Pain, Joint Pain Skin: Denies: Rash Neurological: Denies: Numbness, Tingling, Trouble Speaking, Difficulty Walking, Weakness - Physical Exam Exam: See Below General Appearance: Alert, Mild Distress Eye Exam: Bilateral Eye: PERRL Ears: Normal External Exam Nose: Normal Inspection Throat/Mouth: Normal Inspection, Normal Oropharynx Head Exam: Atraumatic. No: Facial Swelling Neck: Supple, Other (Tender bilateral base no swelling or erythema visible). No : Tender Midline Respiratory/Chest: No Respiratory Distress, Lungs Clear, Normal Breath Sounds Cardiovascular: Regular Rate, Rhythm Neuro Exam (Abbreviated): Alert, Oriented, No Motor/Sensory Deficits Back Exam: Other (There is some tenderness of the right and left upper back). No: Paraspinal Tenderness, Vertebral Tenderness Skin Exam: Warm, Dry, Normal Color Course - Vital Signs Last Recorded V/S: Last Vital Signs Temp 97.8 F 03/20/18 13:06 Pulse 85 03/20/18 13:06 Resp 16 03/20/18 13:06 BP 149/101 H 03/20/18 13:11 Pulse Ox 99 03/20/18 13:06 - Orders/Labs/Meds Orders: Active Orders 24 hr Category Date Time Status Peripheral IV Care [RC] . DIRECTED Care 03/20/18 13:30 Active Ketorolac [Toradol] Med 03/20/18 13:30 Active 30 mg IVPUSH ONETIME Sodium Chloride 0.9% [Normal Saline] 1,000 ml Med 03/20/18 13:30 Active IV ONETIME Sodium Chloride 0.9% [Saline Flush] Med 03/20/18 13:30 Active 10 ml FLUSH ASDIRECTED PRN Peripheral IV Insertion Adult [OM.PC] Stat Oth 03/20/18 13:30 Ordered Medication Orders Sodium Chloride (Normal Saline) 1,000 mls @ 999 mls/hr IV ONETIME MARCO A Last Admin: 03/20/18 14:03 Dose: 999 mls/hr Ketorolac Tromethamine (Toradol) 30 mg IVPUSH ONETIME MARCO A Last Admin: 03/20/18 14:10 Dose: 30 mg Sodium Chloride (Saline Flush) 10 ml FLUSH ASDIRECTED PRN PRN Reason: Keep Vein Open Last Admin: 03/20/18 14:11 Dose: 10 ml Meds: Medications Generic Name Dose Route Start Last Admin Trade Name Freq PRN Reason Stop Dose Admin Sodium Chloride 1,000 mls @ 999 mls/hr 03/20/18 13:30 03/20/18 14:03 Normal Saline IV 999 mls/hr ONETIME MARCO A Administration Ketorolac Tromethamine 30 mg 03/20/18 13:30 03/20/18 14:10 Toradol IVPUSH 30 mg ONETIME MARCO A Administration Sodium Chloride 10 ml 03/20/18 13:30 03/20/18 14:11 Saline Flush FLUSH 10 ml ASDIRECTED PRN Administration Keep Vein Open Discontinued Medications Generic Name Dose Route Start Last Admin Trade Name Yared PRN Reason Stop Dose Admin Dexamethasone 10 mg 03/20/18 15:16 Dexamethasone IVPUSH 03/20/18 15:17 ONETIME STA Diphenhydramine HCl 50 mg 03/20/18 13:30 03/20/18 14:12 Benadryl IVPUSH 03/20/18 13:31 50 mg ONETIME ONE Administration Haloperidol Lactate 5 mg 03/20/18 14:51 03/20/18 15:27 Haldol IVPUSH 03/20/18 14:52 5 mg ONETIME ONE Administration Hydromorphone HCl 1 mg 03/20/18 14:51 03/20/18 15:24 Dilaudid IVPUSH 03/20/18 14:52 1 mg ONETIME ONE Administration Metoclopramide HCl 10 mg 03/20/18 13:30 03/20/18 14:09 Reglan IVPUSH 03/20/18 13:31 10 mg ONETIME ONE Administration - Re-Assessments/Exams Free Text/Narrative Re-Assessment/Exam: 03/20/18 16:03 Good relief of headache with multiple medications and 1 L of fluid IV. Departure - Departure Time of Disposition: 15:55 Disposition: Home, Self-Care 01 Condition: Fair Clinical Impression: Headache Qualifiers: Headache type: unspecified Headache chronicity pattern: acute headache Intractability: not intractable Qualified Code(s): R51 - Headache - Discharge Information Instructions: General Headache Without Cause Referrals: Sandie Long PA-C [Primary Care Provider] - Forms: ED Department Discharge Additional Instructions: Rest, alternate ice and heat as needed, continue working with Tylenol, ibuprofen , other medications as previously prescribed. Follow-up clinic in 2-3 days for recheck. - My Orders Last 24 Hours: My Active Orders 03/20/18 13:30 Peripheral IV Care [RC] . DIRECTED Ketorolac [Toradol] 30 mg IVPUSH ONETIME Sodium Chloride 0.9% [Normal Saline] 1,000 ml IV ONETIME Sodium Chloride 0.9% [Saline Flush] 10 ml FLUSH ASDIRECTED PRN Peripheral IV Insertion Adult [OM.PC] Stat - Assessment/Plan Last 24 Hours: My Active Orders 03/20/18 13:30 Peripheral IV Care [RC] . DIRECTED Ketorolac [Toradol] 30 mg IVPUSH ONETIME Sodium Chloride 0.9% [Normal Saline] 1,000 ml IV ONETIME Sodium Chloride 0.9% [Saline Flush] 10 ml FLUSH ASDIRECTED PRN Peripheral IV Insertion Adult [OM.PC] Stat
[2018-03-20] MEDS ORDERED: Dexamethasone 4 MG/ML 5 ML MDV IV ONE (14:50)
[2018-03-20] MEDS ORDERED: HYDROmorphone 1 MG/ML Syringe IVPUSH ONE (14:51)
[2018-03-20] MEDS ORDERED: Haloperidol Lactate 5 MG/ML SDV IVPUSH ONE (14:51)
[2018-03-20] MEDS ORDERED: Dexamethasone 10 MG/ML SDV IVPUSH STA (15:16)
== END 2018-03-20 16:15 | disposition home or self-care (01) ==
LOC: JD.ED 12:57
DX: R51 Headache (principal); I10 Essential (primary) hypertension; E78.00 Pure hypercholesterolemia, unspecified; E03.9 Hypothyroidism, unspecified; K21.9 Gastro-esophageal reflux disease without esophagitis; F41.9 Anxiety disorder, unspecified; F32.9 Major depressive disorder, single episode, unspecified; Z79.899 Other long term (current) drug therapy
CPT/HCPCS: 96361; 96374; 96375; 96376; 99284; J1100; J1170; J1200; J1630; J1885; J2765; J7040; 99283

== ENCOUNTER 2019-02-19 14:59 | Emergency (ER) | payer MEDICAID ==
[2019-02-19 15:19] VITALS: BP 122/82; PULSE 95
--- NOTE | 2019-02-19 16:15 | EDM.PDOC ---
ED HPI GENERAL MEDICAL PROBLEM - General Chief Complaint: ENT Problem Stated Complaint: SORE THROAT Time Seen by Provider: 02/19/19 15:52 Source of Information: Reports: Patient History Limitations: Reports: No Limitations - History of Present Illness INITIAL COMMENTS - FREE TEXT/NARRATIVE: The patient presents with a sore throat. This started a few days ago. She had a fever last night. She has no cough, congestion or runny nose. She was with her grandchildren last week and they have been diagnosed with strep. She has no abdominal pain, nausea or vomiting. Onset: Gradual Duration: Day(s): Location: Reports: Other (throat) Quality: Reports: Sharp Severity: Severe Improves with: Reports: None Worsens with: Reports: None Associated Symptoms: Reports: Fever/Chills. Denies: Chest Pain, Cough, Headaches, Nausea/Vomiting, Shortness of Breath Throat Pain Score (Numeric/FACES): 3 - Related Data Allergies Allergy/AdvReac Type Severity Reaction Status Date / Time No Known Allergies Allergy Verified 02/19/19 15:19 Home Meds: Home Meds Levothyroxine 175 mcg PO SUMOTUWETHSA 07/24/15 [History] Levothyroxine Sodium [Synthroid] 200 mcg PO FR 07/24/15 [History] Metoprolol Succinate 50 mg PO DAILY 07/09/16 [History] Pantoprazole Sodium [Protonix] 40 mg PO DAILY 07/09/16 [History] Simvastatin 10 mg PO BEDTIME 07/09/16 [History] Zolpidem Tartrate 10 mg PO BEDTIME 07/09/16 [History] metFORMIN HCl [Metformin HCl ER] 500 mg PO BEDTIME 07/09/16 [History] Albuterol Sulfate [Proair Hfa] 1 puff INH Q4H PRN 11/05/16 [History] amLODIPine [Norvasc] 10 mg PO DAILY 11/05/16 [History] Topiramate [Topamax] 50 mg PO BEDTIME 09/10/17 [History] Amoxicillin 1,000 mg PO BID #40 tab 02/19/19 [Rx] Past Medical History HEENT History: Reports: Allergic Rhinitis Cardiovascular History: Reports: High Cholesterol, Hypertension, Other (See Below) Other Cardiovascular History: chest wall pain Respiratory History: Reports: Bronchitis, Recurrent, SOB Other Respiratory History: dypsnea Gastrointestinal History: Reports: GERD Other Gastrointestinal History: abdominal pain, reflux, gastritis, nausea/ vomiting Genitourinary History: Reports: Other (See Below) Other Genitourinary History: dysuria 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: , Other (See Below) Other APPRENTICE PATTERN MAKER History: ovarian cyst Musculoskeletal History: Reports: Back Pain, Chronic Other Musculoskeletal History: L arm paresthesia, cervical radiculopathy, L rotator cuff tear, back pain, bilateral carpal tunnel syndrome, degenerative arthritis of cervical spine, foreign body of toe, heel pain, 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, L shoulder pain, lumbar strain , myofascial pain, neck pain, open head wound, sacroilitis, synovial cyst to R knee Neurological History: Reports: Migraines, TIA Other Neuro History: Current Headache with Rx of 30mg Toradol Psychiatric History: Reports: Anxiety, Depression, Panic Attack Other Psychiatric History: fatigue, insomnia Endocrine/Metabolic History: Reports: Hypothyroidism Hematologic History: Reports: Anemia Other Hematologic History: vit D deficiency Immunologic History: Reports: None Oncologic (Cancer) History: Reports: None Dermatologic History: Reports: Other (See Below) Other Dermatologic History: rash, dermatitis, mucous cyst of toe, neck excision of soft tissue tumor - Past Surgical History Head Surgeries/Procedures: Reports: None GI Surgical History: Reports: Cholecystectomy Other Musculoskeletal Surgeries/Procedures:: L great toe surgery Dermatological Surgical History: Reports: None Social & Family History - Tobacco Use Smoking Status *Q: Never Smoker Second Hand Smoke Exposure: No - Caffeine Use Caffeine Use: Reports: Soda - Recreational Drug Use Recreational Drug Use: No ED ROS ENT - Review of Systems Review Of Systems: See Below Constitutional: Reports: Fever, Chills HEENT: Reports: Throat Pain Respiratory: Reports: No Symptoms Cardiovascular: Reports: No Symptoms Endocrine: Reports: No Symptoms GI/Abdominal: Reports: No Symptoms : Reports: No Symptoms Musculoskeletal: Reports: No Symptoms ED EXAM, ENT - Physical Exam Exam: See Below Exam Limited By: No Limitations General Appearance: Alert, No Apparent Distress Ears: Normal External Exam Nose: Normal Inspection Mouth/Throat: Pharyngeal Erythema Head: Atraumatic, Normocephalic Neck: Normal Inspection, Supple, Non-Tender Respiratory/Chest: No Respiratory Distress, Lungs Clear, Normal Breath Sounds Cardiovascular: Regular Rate, Rhythm, No Edema, No Murmur GI/Abdominal: Soft, Non-Tender, No Organomegaly, No Mass Extremities: Normal Inspection Neurological: Alert, Oriented, No Motor/Sensory Deficits Course - Vital Signs Last Recorded V/S: Last Vital Signs Temp 98.9 F 02/19/19 15:17 Pulse 95 02/19/19 15:17 Resp 16 02/19/19 15:17 BP 122/82 02/19/19 15:17 Pulse Ox 94 L 02/19/19 15:17 - Orders/Labs/Meds Orders: Active Orders 24 hr Category Date Time Status CULTURE STREP A CONFIRMATION [RM] Stat Lab 02/19/19 15:20 Results STREP SCRN A RAPID W CULT CONF [RM] Stat Lab 02/19/19 15:20 Results - Re-Assessments/Exams Free Text/Narrative Re-Assessment/Exam: 02/19/19 16:13 The patient's strep was negative but she has exposure and symptoms. I will treat her. Departure - Departure Time of Disposition: 16:15 Disposition: Home, Self-Care 01 Condition: Good Clinical Impression: Pharyngitis Qualifiers: Pharyngitis/tonsillitis etiology: streptococcus Qualified Code(s): J02.0 - Streptococcal pharyngitis - Discharge Information *PRESCRIPTION DRUG MONITORING PROGRAM REVIEWED*: Not Applicable *COPY OF PRESCRIPTION DRUG MONITORING REPORT IN PATIENT [place]: Not Applicable Prescriptions: Amoxicillin 1,000 mg PO BID #40 tab Referrals: Sandie Long PA-C [Primary Care Provider] - 1 Week Additional Instructions: Take the amoxicillin 2 pills 2 times per day for 10 days. Take motrin or tylenol for pain. Please return if you are worse. Sepsis Event Note - Evaluation Sepsis Screening Result: No Definite Risk - Focused Exam Vital Signs: Vital Signs Temp Pulse Resp BP Pulse Ox 02/19/19 15:17 98.9 F 95 16 122/82 94 L Date Exam was Performed: 02/19/19 Time Exam was Performed: 16:10 - My Orders Last 24 Hours: My Active Orders 02/19/19 15:20 STREP SCRN A RAPID W CULT CONF [] Stat - Assessment/Plan Last 24 Hours: My Active Orders 02/19/19 15:20 STREP SCRN A RAPID W CULT CONF [RM] Stat
== END 2019-02-19 16:30 | disposition home or self-care (01) ==
LOC: JD.ED 14:59
DX: J02.0 Streptococcal pharyngitis (principal); I10 Essential (primary) hypertension; K21.9 Gastro-esophageal reflux disease without esophagitis; E03.9 Hypothyroidism, unspecified; Z79.899 Other long term (current) drug therapy; Z79.84 Long term (current) use of oral hypoglycemic drugs
CPT/HCPCS: 87081; 87430; 99283

== ENCOUNTER 2019-05-07 17:56 | Emergency (ER) | payer MEDICAID ==
[2019-05-07 18:08] VITALS: BP 162/90; PULSE 118
[2019-05-07] MEDS ORDERED: Dexamethasone 10 MG/ML SDV IM ONE (18:14)
[2019-05-07] MEDS ORDERED: HYDROmorphone 1 MG/ML Syringe IM ONE (18:14)
--- NOTE | 2019-05-07 18:21 | EDM.PDOC ---
ED HPI GENERAL MEDICAL PROBLEM - General Chief Complaint: Back Pain or Injury Stated Complaint: BACK PAIN Time Seen by Provider: 05/07/19 18:09 Source of Information: Reports: Patient, RN Notes Reviewed History Limitations: Reports: No Limitations - History of Present Illness INITIAL COMMENTS - FREE TEXT/NARRATIVE: Patient is a 53-year-old female who presents to the ED for the evaluation of her lower back pain. Patient notes that she does have chronic back pain, with sciatica, and usually takes ibuprofen and hydrocodone for the pain and this seems to provide pretty good relief. Patient states her last hydrocodone was around 4 PM, and ibuprofen was around 1 PM. She states however she is not able to get on top of the pain today. She is had no recent injury, but thinks that her sciatica is flaring up pretty gruesome. She notes that the pain is in her right lower back around her SI joint, and does radiate down her right leg, all the way down the posterior portion. Patient states that is hard to walk, and has been having difficulties with this for a few days prior to arrival to the ER. Right Lower Back Pain Score (Numeric/FACES): 8 - Related Data Allergies Allergy/AdvReac Type Severity Reaction Status Date / Time No Known Allergies Allergy Verified 05/07/19 18:08 Home Meds: Home Meds Levothyroxine 175 mcg PO SUMOTUWETHSA 07/24/15 [History] Levothyroxine Sodium [Synthroid] 200 mcg PO FR 07/24/15 [History] Metoprolol Succinate 50 mg PO DAILY 07/09/16 [History] Pantoprazole Sodium [Protonix] 40 mg PO DAILY 07/09/16 [History] Simvastatin 10 mg PO BEDTIME 07/09/16 [History] Zolpidem Tartrate 10 mg PO BEDTIME 07/09/16 [History] metFORMIN HCl [Metformin HCl ER] 500 mg PO BEDTIME 07/09/16 [History] Albuterol Sulfate [Proair Hfa] 1 puff INH Q4H PRN 11/05/16 [History] amLODIPine [Norvasc] 10 mg PO DAILY 11/05/16 [History] Topiramate [Topamax] 50 mg PO BEDTIME 09/10/17 [History] Amoxicillin 1,000 mg PO BID #40 tab 02/19/19 [Rx] predniSONE 20 mg PO ASDIRECTED #15 tab 05/07/19 [Rx] Past Medical History HEENT History: Reports: Allergic Rhinitis Cardiovascular History: Reports: High Cholesterol, Hypertension, Other (See Below) Other Cardiovascular History: chest wall pain Respiratory History: Reports: Bronchitis, Recurrent, SOB Other Respiratory History: dypsnea Gastrointestinal History: Reports: GERD Other Gastrointestinal History: abdominal pain, reflux, gastritis, nausea/ vomiting Genitourinary History: Reports: Other (See Below) Other Genitourinary History: dysuria 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: , 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 (See Below) Other INDUCTOR TESTER History: ovarian cyst Musculoskeletal History: Reports: Back Pain, Chronic Other Musculoskeletal History: L arm paresthesia, cervical radiculopathy, L rotator cuff tear, back pain, bilateral carpal tunnel syndrome, degenerative arthritis of cervical spine, foreign body of toe, heel pain, 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, L shoulder pain, lumbar strain , myofascial pain, neck pain, open head wound, sacroilitis, synovial cyst to R knee Neurological History: Reports: Migraines, TIA Other Neuro History: Current Headache with Rx of 30mg Toradol Psychiatric History: Reports: Anxiety, Depression, Panic Attack Other Psychiatric History: fatigue, insomnia Endocrine/Metabolic History: Reports: Hypothyroidism Hematologic History: Reports: Anemia Other Hematologic History: vit D deficiency Dermatologic History: Reports: Other (See Below) Other Dermatologic History: rash, dermatitis, mucous cyst of toe, neck excision of soft tissue tumor - Past Surgical History GI Surgical History: Reports: Cholecystectomy Other Musculoskeletal Surgeries/Procedures:: L great toe surgery Social & Family History - Tobacco Use Smoking Status *Q: Never Smoker - Caffeine Use Caffeine Use: Reports: Coffee ED ROS GENERAL - Review of Systems Review Of Systems: Comprehensive ROS is negative, except as noted in HPI. ED EXAM,LOWER BACK PAIN/INJURY - Physical Exam Exam: See Below Exam Limited By: No Limitations General Appearance: Alert, WD/WN, No Apparent Distress Eye Exam: Bilateral Eye: EOMI, Normal Inspection, PERRL Ears: Normal External Exam Nose: Normal Inspection Throat/Mouth: Normal Inspection, Normal Lips, Normal Teeth, Normal Gums, Normal Oropharynx, Normal Voice, No Airway Compromise Head: Atraumatic, Normocephalic Neck: Normal Inspection Respiratory/Chest: No Respiratory Distress, Lungs Clear, Normal Breath Sounds, No Accessory Muscle Use, Chest Non-Tender Cardiovascular: Normal Peripheral Pulses, Regular Rate, Rhythm, No Murmur GI/Abdominal: Normal Bowel Sounds, Soft, Non-Tender, No Distention, No Mass Extremities: Normal Inspection, Normal Capillary Refill, Limited Range of Motion (of right leg d/t pain) Neurological: Alert, Normal Mood/Affect, Normal Dorsiflexion, CN II-XII Intact ( grossly), Normal Plantar Flexion, No Motor/Sensory Deficits, Oriented x 3, Straight Leg Raise (R). No: Saddle Anesthesia Psychiatric: Normal Affect, Normal Mood Skin Exam: Warm, Dry, Intact, Normal Color, No Rash Course - Vital Signs Last Recorded V/S: Last Vital Signs Temp 97.4 F 05/07/19 18:05 Pulse 118 H 05/07/19 18:05 Resp 20 05/07/19 18:05 BP 162/90 H 05/07/19 18:05 Pulse Ox 95 05/07/19 18:05 - Orders/Labs/Meds Meds: Medications Discontinued Medications Generic Name Dose Route Start Last Admin Trade Name Yared PRN Reason Stop Dose Admin Dexamethasone 10 mg 05/07/19 18:14 Dexamethasone IM 05/07/19 18:15 ONETIME ONE Hydromorphone HCl 1 mg 05/07/19 18:14 Dilaudid IM 05/07/19 18:15 ONETIME ONE - Re-Assessments/Exams Free Text/Narrative Re-Assessment/Exam: 05/07/19 18:19 Patient presents to the ED for evaluation of her chronic back pain. I have ordered 10 mg IM dexamethasone, and 1 mg IM Dilaudid for her pain management at this time. Patient will be discharged home with a course of prednisone and other general recommendations. Departure - Departure Time of Disposition: 18:19 Disposition: Home, Self-Care 01 Condition: Fair Clinical Impression: Low back pain Qualifiers: Chronicity: acute Back pain laterality: right Sciatica presence: with sciatica Sciatica laterality: sciatica of right side Qualified Code(s): M54.41 - Lumbago with sciatica, right side - Discharge Information *PRESCRIPTION DRUG MONITORING PROGRAM REVIEWED*: No *COPY OF PRESCRIPTION DRUG MONITORING REPORT IN PATIENT [place]: No Prescriptions: predniSONE 20 mg PO ASDIRECTED #15 tab Instructions: Chronic Back Pain, [id number], Radicular Pain Referrals: Katerin Chadwick NP [Primary Care Provider] - Additional Instructions: You have been evaluated in the ED for your lower back pain. Please use ice/heat as tolerated to the affected area. You may take Tylenol 500 mg or ibuprofen 600mg q6 hrs for pain relief. Please do so until you have a tolerable level of pain with activity. Do not exceed 4000mg Tylenol or 3200mg ibuprofen in a 24 hour time period. You were given a course of prednisone, please take as directed for further pain relief due to sciatica. Please try to refrain from using ibuprofen while taking the prednisone as this can be hard on the kidneys. If your symptoms are not much better in a few days time, recommend you seek care for reevaluation. Please return to ED if your symptoms should change or worsen. Sepsis Event Note - Evaluation Sepsis Screening Result: No Definite Risk - Focused Exam Vital Signs: Vital Signs Temp Pulse Resp BP Pulse Ox 05/07/19 18:05 97.4 F 118 H 20 162/90 H 95 Date Exam was Performed: 05/07/19 Time Exam was Performed: 18:15
== END 2019-05-07 18:40 | disposition home or self-care (01) ==
LOC: JD.ED 17:56
DX: M54.41 Lumbago with sciatica, right side (principal); I10 Essential (primary) hypertension; Z88.8 Allergy status to other drugs, medicaments and biological substances; Z79.899 Other long term (current) drug therapy
CPT/HCPCS: 96372; 99283; J1100; J1170

== ENCOUNTER 2021-06-05 10:35 | Day surgery (SDC) | payer MEDICAID ==
[~2021-06-05 10:35] MED LIST changes: +Acetaminophen 325 MG Tab PO SCH; -EPINEPHrine 1 MG/ML SDV ONE; +Lactated Ringers 1,000 ML ONE; -Lidocaine 1% 4 ML ONE; +Lidocaine 1%/Sod Bicarbonate in NS 8.4% 1 ML Syringe IDERM PRN; -Lidocaine 1%/Sod Bicarbonate in NS 8.4% 1 ML Syringe IV PRN; -Ondansetron 4 MG/2 ML SDV ONE; +Pregabalin 25 MG Cap PO SCH; -Rocuronium 50 MG/5 ML Vial ONE; -Ropivacaine 0.5% 5 MG/ML 30 ML SDV ONE; +Sodium Chloride 0.9% 10 ML Syringe FLUSH SCH; +fentaNYL 100 MCG/2 ML SDV ONE; -fentaNYL 250 MCG/5 ML SDV ONE; +oxyCODONE ER 10 MG TAB.ER PO SCH
[2021-06-05] MEDS ORDERED: Scopolamine 1.5 MG Transdermal Patch TRDERM ONE (10:49)
[2021-06-05] MEDS ORDERED: Lidocaine 1% 5 ML VIAL ONE (11:25)
[2021-06-05] MEDS ORDERED: fentaNYL 100 MCG/2 ML SDV ONE (11:26)
[2021-06-05] MEDS ORDERED: ePHEDrine 50 MG/ML SDV ONE (12:05)
[2021-06-05] MEDS ORDERED: HYDROmorphone 0.5 MG/0.5 ML Syringe IVPUSH PRN (12:14)
[2021-06-05] MEDS ORDERED: fentaNYL 100 MCG/2 ML SDV IVPUSH PRN (12:14)
[2021-06-05] MEDS ORDERED: Ondansetron 4 MG/2 ML SDV IVPUSH PRN (12:14)
[2021-06-05] MEDS: Vancomycin 1 GM SDV ONE ×2 (12:26→12:58)
[2021-06-05] MEDS: Morphine 8 MG, EPINEPHrine 0.3 MG, Cefuroxime 750 MG, Ketorolac 30 MG, Sodium Chloride ... PRN ×10 (12:26→12:58)
[2021-06-05] MEDS ORDERED: Propofol 200 MG/20 ML SDV ONE ×2 (12:33→13:15)
[2021-06-05] MEDS ORDERED: Ondansetron 4 MG/2 ML SDV ONE (13:05)
[2021-06-05] MEDS ORDERED: oxyCODONE 5 MG Tab PO PRN (13:48)
[2021-06-05 15:47] VITALS: BP 136/85; PULSE 70
== END 2021-06-05 16:40 | disposition home or self-care (01) ==
LOC: JD.SDS 10:35
PROVIDERS: ATTEND Orthopaedic Surgery
DX: M16.12 Unilateral primary osteoarthritis, left hip (principal); F41.9 Anxiety disorder, unspecified; E11.9 Type 2 diabetes mellitus without complications; G89.29 Other chronic pain; K21.9 Gastro-esophageal reflux disease without esophagitis; E78.5 Hyperlipidemia, unspecified; I10 Essential (primary) hypertension; E03.9 Hypothyroidism, unspecified; G43.909 Migraine, unspecified, not intractable, without status migrainosus; E66.9 Obesity, unspecified; E55.9 Vitamin D deficiency, unspecified; F17.210 Nicotine dependence, cigarettes, uncomplicated; Z79.899 Other long term (current) drug therapy; Z79.890 Hormone replacement therapy; Z79.84 Long term (current) use of oral hypoglycemic drugs; Z98.890 Other specified postprocedural states; Z68.39 Body mass index [BMI] 39.0-39.9, adult
CPT/HCPCS: 0055T; 27130; 36415; 73501; 82947; 86850; 86900; 86901; 97110; 97116; 97161; A9270; C1713; C1776; J0171; J0690; J0697; J1885; J2250; J2270; J2405; J2704; J3010; J3370; J7120; 01214

== ENCOUNTER 2022-11-02 08:22 | Emergency (ER) | payer MEDICAID ==
[2022-11-02] MEDS ORDERED: Sodium Chloride 0.9% 10 ML Syringe FLUSH PRN (08:35)
[2022-11-02] MEDS ORDERED: Sodium Chloride 0.9% 1,000 ML IV ONE (08:53)
[2022-11-02] MEDS ORDERED: Metoclopramide 10 MG/2 ML SDV IVPUSH ONE (08:54)
[2022-11-02] MEDS ORDERED: HYDROmorphone 0.5 MG/0.5 ML Syringe IVPUSH ONE ×2 (08:54→10:18)
[2022-11-02] MEDS ORDERED: Ketorolac 30 MG/ML SDV IVPUSH ONE (08:54)
[2022-11-02] MEDS ORDERED: diphenhydrAMINE 50 MG/ML SDV IVPUSH ONE (08:54)
[2022-11-02 09:27] LABS: CORONAVIRUS COVID-19 NAA NEGATIVE (NEGATIVE); INFLUENZA A NAA NEGATIVE (NEGATIVE); RESPIRATORY SYNCYTIAL VIR NAA NEGATIVE (NEGATIVE)
[2022-11-02 09:41] LABS: BASOPHILS ABSOLUTE AUTO 0.1 K/mm3 (0.0-0.2); BASOPHILS PERCENT AUTO 0.5 % (0.0-1.0); EOSINOPHILS PERCENT AUTO 0.1 % (0.0-6.0); HEMATOCRIT 44.9 % (37.0-47.0); HEMOGLOBIN 15.1 gm/dl (12.0-16.0); IMMATURE GRAN ABSOLUTE AUTO 0.04 K/mm3 (0.00-0.05); IMMATURE GRAN PERCENT AUTO 0.4 % (0.0-0.4); LYMPHOCYTES ABSOLUTE AUTO 1.8 K/mm3 (1.0-4.8); LYMPHOCYTES PERCENT AUTO 18.4 % (24.0-44.0); MEAN CORPUSCULAR HEMOGLOBIN 27.9 pg (28.0-32.0); MEAN CORPUSCULAR HGB CONC 33.6 g/dl (32.0-36.0); MEAN CORPUSCULAR VOLUME 82.8 fl (83.0-99.0); MEAN PLATELET VOLUME 9.5 fl (9.4-12.3); MONOCYTES ABSOLUTE AUTO 0.7 K/mm3 (0.0-0.8); MONOCYTES PERCENT AUTO 6.5 % (0.0-8.0); NEUTROPHILS ABSOLUTE AUTO 7.4 K/mm3 (1.8-7.7); NEUTROPHILS PERCENT AUTO 74.1 % (41.0-71.0); PLATELET COUNT,PLT 414 K/mm3 (150-400); RED BLOOD CELL COUNT 5.42 M/mm3 (4.10-5.30); WHITE BLOOD CELL COUNT,WBC 9.98 K/mm3 (3.9-11.3)
[2022-11-02 09:50] LABS: A/G RATIO 1.1 (1-2); ALBUMIN 4.5 g/dl (3.4-5.0); ANION GAP 19.6 (5-15); BILIRUBIN TOTAL 0.3 mg/dL (0.2-1.0); BUN/CREATININE RATIO 13.8 (14-18); C-REACTIVE PROTEIN 0.5 mg/dL (<1.0); CALCIUM 10.7 mg/dL (8.5-10.1); CREATININE 1.3 mg/dL (0.55-1.02); EST CRCL DRUG DOSING (CG) 42.44 mL/min; POTASSIUM,K 3.6 mEq/L (3.5-5.1); PROTEIN TOTAL,TP 8.5 g/dl (6.4-8.2)
[2022-11-02] MEDS ORDERED: Sodium Chloride 0.9% 1,000 ML IV STA (10:00)
[2022-11-02] MEDS ORDERED: Dicyclomine 10 MG Cap PO ONE (10:18)
[2022-11-02 11:07] LABS: APPEARANCE,URINE CLEAR (Clear); BILIRUBIN,URINE 2+ (Negative); COLOR,URINE YELLOW (Yellow); GLUCOSE,URINE NEGATIVE (Negative); KETONES,URINE 2+ (Negative); LEUKOCYTE ESTERASE,URINE NEGATIVE (Negative); NITRITE,URINE NEGATIVE (Negative); OCCULT BLOOD,URINE NEGATIVE (Negative); PH,URINE 5.5 (5.0-8.0); PROTEIN,URINE 2+ (Negative); UROBILINOGEN,URINE 0.2 (0.2-1.0)
[2022-11-02 11:36] LABS: BACTERIA,URINE MODERATE /hpf (FEW); HYALINE CASTS,URINE 30-40 /lpf (0-5); MUCUS,URINE MANY /hpf (FEW); RBC,URINE 0-5 /hpf (0-5); SQUAMOUS EPITHELIAL CELLS,UR 0-5 /hpf (0-5); WBC,URINE 0-5 /hpf (0-5)
[2022-11-02 11:58] VITALS: BP 130/77; PULSE 101
== END 2022-11-02 11:58 | disposition home or self-care (01) ==
LOC: JD.ED 08:22
DX: G43.909 Migraine, unspecified, not intractable, without status migrainosus (principal); A08.4 Viral intestinal infection, unspecified; E78.00 Pure hypercholesterolemia, unspecified; I10 Essential (primary) hypertension; E03.9 Hypothyroidism, unspecified; Z86.73 Personal history of transient ischemic attack (TIA), and cerebral infarction without residual deficits; Z20.822 Contact with and (suspected) exposure to COVID-19; Z79.82 Long term (current) use of aspirin; Z79.84 Long term (current) use of oral hypoglycemic drugs; Z79.899 Other long term (current) drug therapy
CPT/HCPCS: 0241U; 36415; 80053; 81001; 85025; 86140; 93005; 96361; 96374; 96375; 96376; 99284; A9270; J1170; J1200; J1885; J2765; J3490; J7030; 93010

== ENCOUNTER 2022-11-13 12:01 | Emergency (ER) | payer MEDICAID ==
[2022-11-13] MEDS ORDERED: HYDROmorphone 0.5 MG/0.5 ML Syringe IM ONE (12:44)
[2022-11-13] MEDS ORDERED: Ondansetron 4 MG Tab.DIS PO ONE (12:46)
[2022-11-13 14:44] VITALS: BP 135/84; PULSE 79
== END 2022-11-13 13:53 | disposition home or self-care (01) ==
LOC: JD.ED 12:01
DX: M54.41 Lumbago with sciatica, right side (principal); I10 Essential (primary) hypertension; K21.9 Gastro-esophageal reflux disease without esophagitis; E78.00 Pure hypercholesterolemia, unspecified; Z79.82 Long term (current) use of aspirin
CPT/HCPCS: 96372; 99283; A9270; J1170

== ENCOUNTER 2023-01-22 07:16 | Day surgery (SDC) | payer MEDICAID ==
[~2023-01-22 07:16] MED LIST changes: -Acetaminophen 325 MG Tab PO SCH; -Lactated Ringers 1,000 ML ONE; -Lidocaine 1%/Sod Bicarbonate in NS 8.4% 1 ML Syringe IDERM PRN; -Midazolam 1 MG/ML 2 ML SDV ONE; -Pregabalin 25 MG Cap PO SCH; -Propofol 200 MG/20 ML SDV ONE; -ceFAZolin 1 GM Vial ONE; -fentaNYL 100 MCG/2 ML SDV ONE; -oxyCODONE ER 10 MG TAB.ER PO SCH
[2023-01-22] MEDS ORDERED: fentaNYL 100 MCG/2 ML SDV ONE (07:25)
[2023-01-22] MEDS ORDERED: Propofol 200 MG/20 ML SDV ONE (07:25)
[2023-01-22] MEDS ORDERED: Lidocaine 1% 4 ML ONE (07:25)
[2023-01-22 08:53] VITALS: BP 118/84; PULSE 74
[2023-01-22] MEDS ORDERED: Ondansetron 4 MG/2 ML SDV IVPUSH PRN (09:39)
[2023-01-22] MEDS ORDERED: fentaNYL 100 MCG/2 ML SDV IVPUSH PRN (09:39)
[2023-01-22] MEDS ORDERED: HYDROmorphone 0.5 MG/0.5 ML Syringe IVPUSH PRN (09:39)
[2023-01-22] MEDS ORDERED: Scopalamine 1mg/3day Transdermal Patch TOP ONE (09:40)
== END 2023-01-22 09:05 | disposition home or self-care (01) ==
LOC: JD.SDS 07:16
PROVIDERS: ATTEND Specialist
DX: K29.50 Unspecified chronic gastritis without bleeding (principal); K31.A0 Gastric intestinal metaplasia, unspecified; K44.9 Diaphragmatic hernia without obstruction or gangrene; K21.9 Gastro-esophageal reflux disease without esophagitis; J45.909 Unspecified asthma, uncomplicated; F32.A Depression, unspecified; E11.9 Type 2 diabetes mellitus without complications; E78.2 Mixed hyperlipidemia; E03.9 Hypothyroidism, unspecified; E66.9 Obesity, unspecified; Z68.41 Body mass index [BMI] 40.0-44.9, adult; Z79.890 Hormone replacement therapy; Z79.84 Long term (current) use of oral hypoglycemic drugs; Z79.899 Other long term (current) drug therapy
CPT/HCPCS: 43239; 82947; J2704; J3010; J7120; 00731; J3490

== ENCOUNTER 2023-06-20 06:02 | Emergency (ER) | payer MEDICAID ==
[2023-06-20 06:56] LABS: BASOPHILS ABSOLUTE AUTO 0.1 K/mm3 (0.0-0.2); BASOPHILS PERCENT AUTO 0.4 % (0.0-1.0); EOSINOPHILS ABSOLUTE AUTO 0.1 K/mm3 (0.0-0.4); EOSINOPHILS PERCENT AUTO 0.9 % (0.0-6.0); HEMATOCRIT 44.8 % (37.0-47.0); HEMOGLOBIN 14.9 gm/dl (12.0-16.0); IMMATURE GRAN ABSOLUTE AUTO 0.04 K/mm3 (0.00-0.05); IMMATURE GRAN PERCENT AUTO 0.3 % (0.0-0.4); LYMPHOCYTES ABSOLUTE AUTO 1.6 K/mm3 (1.0-4.8); LYMPHOCYTES PERCENT AUTO 13.5 % (24.0-44.0); MEAN CORPUSCULAR HEMOGLOBIN 27.7 pg (28.0-32.0); MEAN CORPUSCULAR HGB CONC 33.3 g/dl (32.0-36.0); MEAN CORPUSCULAR VOLUME 83.4 fl (83.0-99.0); MEAN PLATELET VOLUME 8.8 fl (9.4-12.3); MONOCYTES ABSOLUTE AUTO 0.6 K/mm3 (0.0-0.8); MONOCYTES PERCENT AUTO 5.2 % (0.0-8.0); NEUTROPHILS ABSOLUTE AUTO 9.3 K/mm3 (1.8-7.7); NEUTROPHILS PERCENT AUTO 79.7 % (41.0-71.0); PLATELET COUNT,PLT 523 K/mm3 (150-400); RED BLOOD CELL COUNT 5.37 M/mm3 (4.10-5.30); WHITE BLOOD CELL COUNT,WBC 11.65 K/mm3 (3.9-11.3)
[2023-06-20] MEDS: Metoclopramide 10 MG/2 ML SDV IVPUSH ONE (06:57)
[2023-06-20] MEDS: Sodium Chloride 0.9% 1,000 ML IV ONE (06:57)
[2023-06-20] MEDS: Ondansetron 4 MG/2 ML SDV IVPUSH ONE (06:58)
[2023-06-20 07:22] LABS: A/G RATIO 1.2 (1-2); ALBUMIN 4.4 g/dl (3.4-5.0); ANION GAP 18.2 (5-15); BILIRUBIN TOTAL 0.4 mg/dL (0.2-1.0); CALCIUM 10.6 mg/dL (8.5-10.1); CREATININE 1.2 mg/dL (0.55-1.02); EST CRCL DRUG DOSING (CG) 45.98 mL/min; POTASSIUM,K 4.2 mEq/L (3.5-5.1); PROTEIN TOTAL,TP 8.2 g/dl (6.4-8.2)
[2023-06-20 07:44] LABS: APPEARANCE,URINE CLEAR (Clear); BILIRUBIN,URINE NEGATIVE (Negative); COLOR,URINE YELLOW (Yellow); GLUCOSE,URINE NEGATIVE (Negative); KETONES,URINE NEGATIVE (Negative); LEUKOCYTE ESTERASE,URINE TRACE (Negative); NITRITE,URINE NEGATIVE (Negative); OCCULT BLOOD,URINE NEGATIVE (Negative); PROTEIN,URINE NEGATIVE (Negative); UROBILINOGEN,URINE 0.2 (0.2-1.0)
[2023-06-20] MEDS: Iopamidol 612 MG/ML 30 ML SDV IVPUSH ONE (07:53)
[2023-06-20] MEDS: HYDROmorphone 0.5 MG/0.5 ML Syringe IVPUSH ONE (08:00)
[2023-06-20 08:03] LABS: BACTERIA,URINE FEW /hpf (FEW); MUCUS,URINE MODERATE /hpf (FEW); RBC,URINE 0-5 /hpf (0-5)
[2023-06-20 10:06] VITALS: BP 125/108; PULSE 101
== END 2023-06-20 10:06 | disposition home or self-care (01) ==
LOC: JD.ED 06:02
DX: K59.09 Other constipation (principal); I10 Essential (primary) hypertension; E78.00 Pure hypercholesterolemia, unspecified; E03.9 Hypothyroidism, unspecified; Z86.73 Personal history of transient ischemic attack (TIA), and cerebral infarction without residual deficits; Z79.51 Long term (current) use of inhaled steroids; Z79.84 Long term (current) use of oral hypoglycemic drugs; Z87.891 Personal history of nicotine dependence
CPT/HCPCS: 36415; 74177; 80053; 81001; 81003; 83690; 84484; 85025; 87086; 93005; 96361; 96374; 96375; 99284; J1170; J2765; J7030; Q9967

== ENCOUNTER 2024-01-07 08:50 | Day surgery (SDC) | payer MEDICAID ==
[2024-01-07] MEDS ORDERED: Propofol 200 MG/20 ML SDV ONE ×4 (09:14→10:23)
[2024-01-07] MEDS: Lactated Ringers 1,000 ML IV SCH (09:20)
[2024-01-07] MEDS ORDERED: Lidocaine 1% 2 ML ONE (10:01)
[2024-01-07 11:28] VITALS: BP 107/70; PULSE 69
== END 2024-01-07 11:25 | disposition home or self-care (01) ==
LOC: JD.SDS 08:50
PROVIDERS: ATTEND Surgery
DX: Z12.11 Encounter for screening for malignant neoplasm of colon (principal); D12.5 Benign neoplasm of sigmoid colon; J45.909 Unspecified asthma, uncomplicated; F41.9 Anxiety disorder, unspecified; K21.9 Gastro-esophageal reflux disease without esophagitis; E78.2 Mixed hyperlipidemia; I10 Essential (primary) hypertension; E03.9 Hypothyroidism, unspecified; Z79.84 Long term (current) use of oral hypoglycemic drugs; Z79.899 Other long term (current) drug therapy
CPT/HCPCS: 45385; J2704; J7120; 00811; J3490

== ENCOUNTER 2024-04-05 06:45 | Day surgery (SDC) | payer MEDICAID ==
[~2024-04-05 06:45] MED LIST changes: -Lactated Ringers 1,000 ML IV SCH
[2024-04-05] MEDS ORDERED: Ketorolac 30 MG/ML SDV ONE (07:11)
[2024-04-05] MEDS ORDERED: Lidocaine 2% 5 ML SDV ONE (07:11)
[2024-04-05] MEDS ORDERED: Dexamethasone 4 MG/ML 5 ML MDV ONE (07:11)
[2024-04-05] MEDS ORDERED: ceFAZolin 2 GM Vial ONE (07:11)
[2024-04-05] MEDS ORDERED: Ondansetron 4 MG/2 ML SDV ONE ×2 (07:11→08:06)
[2024-04-05] MEDS ORDERED: Propofol 200 MG/20 ML SDV ONE (07:12)
[2024-04-05] MEDS ORDERED: fentaNYL 100 MCG/2 ML SDV ONE (07:12)
[2024-04-05] MEDS ORDERED: Ketamine 200 MG/20 ML MDV ONE (07:19)
[2024-04-05] MEDS: Lactated Ringers 1,000 ML IV SCH (07:30)
[2024-04-05] MEDS: Acetaminophen 325 MG Tab PO ONE (07:45)
[2024-04-05] MEDS: Scopalamine 1mg/3day Transdermal Patch TOP ONE (07:57)
[2024-04-05] MEDS: Lidocaine 1% 10 ML MDV ONE (08:09)
[2024-04-05] MEDS: Bupivacaine 0.5% 10 ML SDV ONE (08:09)
[2024-04-05] MEDS ORDERED: Metoclopramide 10 MG/2 ML SDV ONE (08:31)
[2024-04-05] MEDS ORDERED: dexmedeTOMIDine HCl 200 MCG/2 ML SDV ONE (09:56)
[2024-04-05] MEDS: Bupivacaine 0.5% 30 ML SDV ONE (10:29)
[2024-04-05] MEDS ORDERED: HYDROmorphone 0.5 MG/0.5 ML Syringe IVPUSH PRN (10:48)
[2024-04-05] MEDS ORDERED: Ondansetron 4 MG/2 ML SDV IVPUSH PRN (10:48)
[2024-04-05] MEDS: fentaNYL 100 MCG/2 ML SDV IVPUSH PRN (11:35)
[2024-04-05 12:52] VITALS: BP 117/80; PULSE 83
[2024-04-05] MEDS: Acetaminophen/oxyCODONE 325-5 MG Tab PO PRN (13:00)
== END 2024-04-05 12:25 | disposition home or self-care (01) ==
LOC: JD.SDS 06:45
PROVIDERS: ATTEND Podiatrist Foot & Ankle Surgery
DX: M21.611 Bunion of right foot (principal); M20.31 Hallux varus (acquired), right foot; E11.9 Type 2 diabetes mellitus without complications; F41.9 Anxiety disorder, unspecified; K21.9 Gastro-esophageal reflux disease without esophagitis; E78.5 Hyperlipidemia, unspecified; E03.9 Hypothyroidism, unspecified; E66.01 Morbid (severe) obesity due to excess calories; Z79.84 Long term (current) use of oral hypoglycemic drugs; Z79.899 Other long term (current) drug therapy
CPT/HCPCS: 28297; 76000; 82947; A9270; J0665; J0690; J1100; J1885; J2003; J2405; J2704; J2765; J3010; J3490; J7120; C1713